=== PATIENT | male | born 1960 | race Caucasian/White ===

== ENCOUNTER 2020-04-20 10:33 | Emergency (ER) | payer OTHER, SELFPAY ==
[~2020-04-20] VITALS: Ht 175.3 cm; Wt 86.2 kg
[2020-04-20 10:41] VITALS: BP 104/70
--- NOTE | 2020-04-20 11:45 | NUR ---
Patient discharged with v/s stable. Written and verbal after care instructions given and explained. Patient alert, oriented and verbalized understanding of instructions. Ambulatory with steady gait. All questions addressed prior to discharge. ID band removed. Patient advised to follow up with PMD. Rx of Tylenol and Guaiatussin given. Patient educated on indication of medication including possible reaction and side effects. Opportunity to ask questions provided and answered. Addendum: 04/20/20 at 1145 by [facility] covid swab collected and sent to the lab.
== END 2020-04-20 11:45 | disposition home or self-care (01) ==
LOC: MED 10:33
DX: J06.9 Acute upper respiratory infection, unspecified (principal); Z20.828 Contact with and (suspected) exposure to other viral communicable diseases; Z98.890 Other specified postprocedural states
CPT/HCPCS: 99283; U0003